=== PATIENT | female | born 1990 | race Caucasian/White ===

== ENCOUNTER 2016-06-20 03:14 | Emergency (ER) | payer MEDICAID, OTHER ==
[~2016-06-20] VITALS: Ht 170.2 cm; Wt 58.9 kg
[~2016-06-20 03:14] MED LIST: AMBI10TA PO; OMEP20CA5 PO; PROM25TA5 PO; Z.0.BCPILL PO
[2016-06-20 03:23] VITALS: BP 119/82; PULSE 76; RESP 20; TEMP 97.8; O2SAT 100
[2016-06-20] MEDS ORDERED: AMBI10TA PO (03:39)
[2016-06-20] MEDS ORDERED: TOPA50TA7 PO (03:39)
[2016-06-20] MEDS ORDERED: SPRI28TA PO (03:39)
[2016-06-20] MEDS ORDERED: SODIUM CHLOR 0.9% 1000 ML INJ 1,000 ML IV ONE (03:43)
[2016-06-20 03:45] VITALS: RESP 18; O2SAT 100
[2016-06-20] MEDS ORDERED: ONDANSETRON HCL 4 MG/2 ML VIAL IVP ONE (03:45)
--- NOTE | 2016-06-20 03:51 | PD ---
HPI Chief Complaint: GI Complaint Time Seen by Provider: 03:43 Travel History International Travel<30 days: No Contact w/Intl Traveler<30days: No Traveled to known affect area: No History of Present Illness HPI 25-year-old female presents to the emergency department by private transportation for multiple episodes of vomiting since 7 PM. Patient states started noticing nausea associated with a mild headache 2-3/10 in intensity frontal in nature. Patient states headache not severe like her migraines. Patient does have history of migraine headaches that are typically 9/10 intensity. This headache is not sudden onset thunderclap or worst ever. Patient does not recall any dietary indiscretion well water ingestion or foreign travel. Patient states symptoms began after exercising but denies any change in her routine prolongation of her routine extra weights to her lip during her routine or any symptoms while doing her exercise regimen. Patient reports that she remains well-hydrated. Last period was approximately 2 weeks ago normal for her denies . No fever no chills no neck pain no neck stiffness no respiratory illness or symptoms. No other persons or family members with similar symptoms. Patient states first episode of of vomiting was self-induced. Patient states multiple episodes of vomiting now are associated with bile. No report of hematemesis or coffee-ground emesis. No abdominal pain and no diarrhea. Patient rates current pain 2/10 intensity. Patient states she's had episodes like this before but infrequently. PFSH Past Medical History Narrative Medical Insomnia, migraines, rest implants, tobacco use Atrial Fibrillation: Yes (STATED BY PT 11/06/15) Diminished Hearing: No Insomnia: Yes Migraines: Yes Tetanus Vaccination: Unknown Influenza Vaccination: No ?: Not LMP: 1 1/2 WEEKS AGO PT STATED : 5 Para: 3 : 2 Past Surgical History Other Surgery: Yes (BREAST IMPLANTS: AGE 22) Social History Alcohol Use: Yes ("OCCASIONALLY") Tobacco Use: Yes (03/20 PPD) Substance Use: No Allergies-Medications (Allergen,Severity, Reaction): Coded Allergies: Penicillin (Verified Allergy, Intermediate, Rash, 06/20/16) Reported Meds & Prescriptions Reported Meds & Active Scripts Active Zofran Odt (Ondansetron Odt) 4 Mg Tab 4 Mg SL Q6HR PRN Reported Topamax (Topiramate) 50 Mg Tab 50 Mg PO BID Sprintec 28 (Norgestimate-Ethinyl Estradiol) 0.25-35 mg-Mcg Tab 1 Tab PO DAILY Ambien (Zolpidem Tartrate) 10 Mg Tab 10 Mg PO HS PRN Review of Systems Except as stated in HPI: all other systems reviewed are Neg General / Constitutional: No: Fever, Chills HENT: Positive: Headaches, No: Congestion, Neck Stiffness, Neck Pain Cardiovascular: No: Chest Pain or Discomfort Respiratory: No: Shortness of Breath Gastrointestinal: Positive: Nausea, Vomiting, No: Diarrhea, Abdominal Pain Genitourinary: No: Dysuria, Flank Pain Musculoskeletal: No: Myalgias, Arthralgias Skin: No Rash Neurologic: Positive: Headache, No: Weakness Psychiatric: No: Anxiety Hematologic/Lymphatic: No: Lymph Node Enlargement Physical Exam Narrative GENERAL: Well-developed well-nourished female in no acute distress no respiratory distress; GCS 15 SKIN: Warm and dry. HEAD: Atraumatic. Normocephalic. EYES: Pupils equal and round. Extraocular muscles intact. No scleral icterus. No injection or drainage. ENT: No nasal bleeding or discharge. Mucous membranes pink and moist. NECK: Trachea midline. No JVD. Supple no meningismus no nuchal rigidity nontender to direct palpation along the cervical spine. CARDIOVASCULAR: Regular rate and rhythm. RESPIRATORY: No accessory muscle use. Clear to auscultation. Breath sounds equal bilaterally. GASTROINTESTINAL: Abdomen soft, non-tender, nondistended. Hepatic and splenic margins not palpable. MUSCULOSKELETAL: Extremities without clubbing, cyanosis, or edema. No obvious deformities. NEUROLOGICAL: Awake and alert. GCS 15. No obvious cranial nerve deficits. Motor grossly within normal limits. Five out of 5 muscle strength in the arms and legs. Normal speech. PSYCHIATRIC: Appropriate mood and affect; insight and judgment normal. Data Data Last Documented VS Vital Signs Date Time Temp Pulse Resp B/P Pulse Ox O2 Delivery O2 Flow Rate FiO2 06/20/16 05:17 70 18 105/61 100 06/20/16 04:40 Room Air 06/20/16 03:23 97.8 Orders Ed Urine Pregnancytest Poc (06/20/16 03:39) Complete Blood Count With Diff (06/20/16 03:43) Basic Metabolic Panel (Bmp) (06/20/16 03:43) Urinalysis - C+S If Indicated (06/20/16 03:43) Lipase (06/20/16 03:43) Iv Access Insert/Monitor (06/20/16 03:43) Ecg Monitoring (06/20/16 03:43) Oximetry (06/20/16 03:43) Ondansetron Inj (Zofran Inj) (06/20/16 03:45) Sodium Chlor 0.9% 1000 Ml Inj (Ns 1000 M (06/20/16 03:43) Ondansetron Inj (Zofran Inj) (06/20/16 05:00) Promethazine Supp (Phenergan Supp) (06/20/16 05:30) Labs Laboratory Tests Test 06/20/16 03:50 White Blood Count 7.7 TH/MM3 Red Blood Count 4.35 MIL/MM3 Hemoglobin 12.4 GM/DL Hematocrit 37.3 % Mean Corpuscular Volume 85.6 FL Mean Corpuscular Hemoglobin 28.6 PG Mean Corpuscular Hemoglobin 33.4 % Concent Red Cell Distribution Width 12.8 % Platelet Count 283 TH/MM3 Mean Platelet Volume 8.4 FL Neutrophils (%) (Auto) 82.6 % Lymphocytes (%) (Auto) 10.8 % Monocytes (%) (Auto) 4.8 % Eosinophils (%) (Auto) 1.3 % Basophils (%) (Auto) 0.5 % Neutrophils # (Auto) 6.4 TH/MM3 Lymphocytes # (Auto) 0.8 TH/MM3 Monocytes # (Auto) 0.4 TH/MM3 Eosinophils # (Auto) 0.1 TH/MM3 Basophils # (Auto) 0.0 TH/MM3 CBC Comment DIFF FINAL Differential Comment Urine Color YELLOW Urine Turbidity CLEAR Urine pH 8.5 Urine Specific [place] 1.031 Urine Protein 30 mg/dL Urine Glucose (UA) NEG mg/dL Urine Ketones 15 mg/dL Urine Occult Blood NEG Urine Nitrite NEG Urine Bilirubin NEG Urine Leukocyte Esterase NEG Urine RBC 0-2 /hpf Urine WBC 0-2 /hpf Urine Squamous Epithelial > 8 /hpf Cells Urine Bacteria NONE /hpf Microscopic Urinalysis Comment CULT NOT INDICATED Sodium Level 140 MEQ/L Potassium Level 3.7 MEQ/L Chloride Level 105 MEQ/L Carbon Dioxide Level 25.1 MEQ/L Anion Gap 10 MEQ/L Blood Urea Nitrogen 15 MG/DL Creatinine 0.84 MG/DL Estimat Glomerular Filtration 81 ML/MIN Rate Random Glucose 97 MG/DL Calcium Level 8.6 MG/DL Lipase 171 U/L [facility] Medical Decision Making Medical Screen Exam Complete: Yes Emergency Medical Condition: Yes Medical Record Reviewed: Yes Differential Diagnosis Vomiting, gastroenteritis, food borne illness, viral syndrome, dehydration, ICH , migraine variant Narrative Course IV access obtained specimens collected and sent for resulting [id number] hCG negative normal saline bolus administered along with Zofran 4 mg IV Laboratory values resulted and found to be grossly within normal limits; point- of-care hCG negative At 4:40 a.m. after 1 L of normal saline and Zofran 4 mg patient is resting comfortably in stable for outpatient management Taking oral hydration with ice chips and the preparing to be discharged, iv access had been removed and patient developed of an episode of vomiting --- therefore Phenergan 25 mg TX administered Diagnosis Primary Impression: Vomiting Qualified Code: R11.2 - Non-intractable vomiting with nausea, unspecified vomiting type Additional Impression: Gastritis Qualified Code: K29.00 - Acute gastritis without hemorrhage, unspecified gastritis type Referrals: Primary Care Physician call for appointment Patient Instructions: General Instructions Departure Forms: Tests/Procedures, Work Release Special Instructions: no work x 1 day Med/Other Pt SpecificInfo: Prescription(s) given Scripts Ondansetron Odt (Zofran Odt)4 Mg Tab4 Mg SL Q6HR PRN (Nausea/Vomiting) #10 TAB Ref 0 Prov:Dea Rabago MD 06/20/16 Disposition: DISCHARGE HOME Condition: Stable Dea Rabago MD Jun 20, 2016 03:50
[2016-06-20 04:00] LABS: AUTOMATED NEUTROPHIL # 6.4 TH/MM3 (1.8-7.7); BASOPHIL % 0.5 % (0.0-2.0); EOSINOPHIL # 0.1 TH/MM3 (0-0.4); EOSINOPHIL % 1.3 % (0.0-4.0); HEMATOCRIT 37.3 % (35.0-46.0); LYMPH % 10.8 % (9.0-44.0); LYMPHOCYTE # 0.8 TH/MM3 (1.0-4.8); MEAN CELL VOLUME 85.6 FL (80.0-100.0); MEAN CORPUSCULAR HEMOGLOBIN 28.6 PG (27.0-34.0); MEAN CORPUSCULAR HGB CONC 33.4 % (32.0-36.0); MONO % 4.8 % (0.0-8.0); NEUT % 82.6 % (16.0-70.0); PLATELET COUNT 283 TH/MM3 (150-450); RED BLOOD COUNT 4.35 MIL/MM3 (4.00-5.30); RED CELL DISTRIBUTION WIDTH 12.8 % (11.6-17.2); WHITE BLOOD COUNT 7.7 TH/MM3 (4.0-11.0)
[2016-06-20 04:01] LABS: HEMO FLAGS DIFF FINAL
[2016-06-20 04:06] LABS: BLOOD, URINE NEG (NEG); GLUCOSE,URINE NEG (NEG); KETONE, URINE 15 mg/dL (NEG); NITRITE,URINE NEG (NEG); PH, URINE 8.5 (5.0-8.5)
[2016-06-20 04:08] LABS: POTASSIUM 3.7 MEQ/L (3.5-5.1)
[2016-06-20 04:11] LABS: BICARBONATE 25.1 MEQ/L (21.0-32.0); RBC, URINE 0-2 /hpf (0-3); SQUAMOUS EPITHELIAL CELL URINE > 8 /hpf (0-5); URINE COLOR YELLOW (YELLW/STRAW); WBC, URINE 0-2 /hpf (0-5)
[2016-06-20 04:12] LABS: COMMENT (UR) CULT NOT INDICATED; COMMENT2 (UR) MUCOUS PRESENT; CULTURE IF INDICATED CULT NOT INDICATED
[2016-06-20] MEDS ORDERED: ZOFR4TAB3 SL (04:39)
[2016-06-20 04:40] VITALS: BP 101/56; PULSE 72; RESP 18; O2SAT 98
[2016-06-20] MEDS ORDERED: ONDANSETRON HCL 4 MG/2 ML VIAL IV PUSH ONE (05:00)
[2016-06-20 05:17] VITALS: BP 105/61
[2016-06-20] MEDS ORDERED: PROMETHAZINE HCL 25 MG SUPP RECTAL ONE (05:30)
== END 2016-06-20 05:57 | disposition home or self-care (01) ==
LOC: PHED 03:14
DX: R11.2 Nausea with vomiting, unspecified (principal); K29.00 Acute gastritis without bleeding; R51 Headache; Z72.0 Tobacco use; Z86.69 Personal history of other diseases of the nervous system and sense organs; Z86.79 Personal history of other diseases of the circulatory system
CPT/HCPCS: 80048; 81001; 83690; 84703; 85025; 96361; 96374; 96376; 99284; J2405; J7030

== ENCOUNTER 2016-09-09 19:58 | Emergency (ER) | payer OTHER ==
[~2016-09-09] VITALS: Ht 170.2 cm; Wt 60.4 kg
[~2016-09-09 19:58] MED LIST changes: -OMEP20CA5 PO; -PROM25TA5 PO; +SPRI28TA PO; +TOPA50TA7 PO; -Z.0.BCPILL PO; +ZOFR4TAB3 SL
[2016-09-09 20:01] VITALS: BP 120/84; PULSE 64; RESP 18; TEMP 98.1; O2SAT 98
--- NOTE | 2016-09-09 20:59 | RADRPT ---
EXAM DATE/TIME: 09/09/2016 20:36 [place] COMPARISON: No previous studies available for comparison. INDICATIONS : Right hand pain. MEDICAL HISTORY : None. SURGICAL HISTORY : None. ENCOUNTER: Initial ACUITY: 1 day PAIN SCORE: 4/10 LOCATION: Right hand. FINDINGS: Three view examination of the right hand demonstrates no soft tissue swelling, dislocation, or fractu re. The carpal bones appear intact. The interphalangeal and metacarpophalangeal joints are intact. Bony mineralization is normal. CONCLUSION: Unremarkable examination of the right hand. Isidoro Fenton MD on September 09, 2016 at 20:56 Board Certified Radiologist. This report was verified electronically.
--- NOTE | 2016-09-09 21:35 | PD ---
HPI Chief Complaint: Laceration/Skin Injury Time Seen by Provider: 20:05 Travel History International Travel<30 days: No Contact w/Intl Traveler<30days: No Traveled to known affect area: No History of Present Illness HPI 26-year-old female presents emergency department for evaluation of laceration right hand. Patient reports she punched a window while demonstrating kickboxing move which caused a laceration over the right fourth MCP. She denies that this was a fight bite injury. Patient has full range of motion of the hand. She reports normal motor and sensation of the digit. Tetanus status up-to-date. [facility] Past Medical History Medical History: Denies Significant Hx Atrial Fibrillation: Yes Diminished Hearing: No Insomnia: Yes Migraines: Yes Tetanus Vaccination: < 5 Years Influenza Vaccination: No ?: Not LMP: 11 days ago : 5 Para: 3 : 2 Past Surgical History Other Surgery: Yes (Breast ) Social History Alcohol Use: Yes (Occ.) Tobacco Use: Yes (Occ.) Substance Use: No Allergies-Medications (Allergen,Severity, Reaction): Coded Allergies: Penicillin (Verified Allergy, Intermediate, Rash, 09/09/16) Reported Meds & Prescriptions Reported Meds & Active Scripts Active Reported Topamax (Topiramate) 50 Mg Tab 50 Mg PO DAILY Sprintec 28 (Norgestimate-Ethinyl Estradiol) 0.25-35 mg-Mcg Tab 1 Tab PO DAILY Review of Systems Except as stated in HPI: all other systems reviewed are Neg Physical Exam Narrative GENERAL: Well-nourished, well-developed patient. SKIN: Focused skin assessment warm/dry. 1.5 cm laceration right hand over MCP joint. No tendon injury visualized. HEAD: Normocephalic. EYES: No scleral icterus. No injection or drainage. NECK: Supple, trachea midline. No JVD or lymphadenopathy. CARDIOVASCULAR: Regular rate and rhythm without murmurs, gallops, or rubs. RESPIRATORY: Breath sounds equal bilaterally. No accessory muscle use. GASTROINTESTINAL: Abdomen soft, non-tender, nondistended. MUSCULOSKELETAL: No cyanosis, or edema. Right hand: 1.5 cm laceration right hand over MCP joint. No tendon injury visualized. Patient has full range of motion against resistance. Normal sensation within the digit. BACK: Nontender without obvious deformity. No CVA tenderness. Data Data Last Documented VS Vital Signs Date Time Temp Pulse Resp B/P Pulse Ox O2 Delivery O2 Flow Rate FiO2 09/09/16 20:01 98.1 64 18 120/84 98 Orders Hand, Complete ([id number]) (09/09/16 ) [facility] Medical Decision Making Medical Screen Exam Complete: Yes Emergency Medical Condition: Yes Differential Diagnosis Hand laceration, contusion, rule out retained foreign body Narrative Course 26-year-old female since emergency department for evaluation of right hand laceration. Patient has a 1.5 cm laceration over the right MCP caused by broken glass. She has normal sensation and full range of motion. X-ray was negative for retained foreign body. Laceration repaired. Wound care and follow -up discussed with patient. She verbalizes understanding. Procedures Procedure Narrative LACERATION LOCATION: [-Right hand ] LENGTH: 1.5 cm NUMBER OF STITCHES/ADELAIDE: [-] REPAIR: The area of the laceration was prepped with Betadine and sterilely draped. The laceration was infiltrated with 1% lidocaine. The wound was copiously irrigated and explored without evidence of foreign body, tendon injury or neurovascular injury. The wound was closed using 4-0 Prolene. This was a [-] layer repair. A sterile dressing was applied. The patient was advised to keep the dressing clean and dry. Patient tolerated the procedure well. Diagnosis Primary Impression: Hand laceration Qualified Code: S61.411A - Laceration of right hand without foreign body, initial encounter Referrals: Primary Care Physician Patient Instructions: General Instructions Departure Forms: Tests/Procedures Additional Instructions: Do not submerge the hand into water. He may begin showering tomorrow. Keep the area clean and dry. Sutures need to be removed in 7-10 days. Disposition: 01 DISCHARGE HOME Condition: Stable TrentonKarolina LUCIA Sep 09, 2016 21:35
== END 2016-09-09 21:35 | disposition home or self-care (01) ==
LOC: PHEFT 19:58
DX: S61.411A Laceration without foreign body of right hand, initial encounter (principal); W22.8XXA Striking against or struck by other objects, initial encounter; Y93.71 Activity, boxing; Z88.0 Allergy status to penicillin; I48.91 Unspecified atrial fibrillation
CPT/HCPCS: 12001; 73130

== ENCOUNTER 2017-08-06 01:29 | Emergency (ER) | payer OTHER ==
[~2017-08-06 01:29] MED LIST changes: -AMBI10TA PO; -ZOFR4TAB3 SL
[2017-08-06 01:33] VITALS: BP 139/98; PULSE 84; RESP 16; TEMP 98
[2017-08-06 01:37] VITALS: O2SAT 99
[2017-08-06] MEDS ORDERED: MORPHINE SULFATE 4 MG/ML INJ IM ONE (02:00)
[2017-08-06] MEDS ORDERED: PROMETHAZINE INJ 25 MG/ML VIAL IM ONE (02:00)
[2017-08-06] MEDS ORDERED: KETOROLAC TROMETHAMINE 60 MG/2 ML (IM) VIAL IM ONE (02:00)
[2017-08-06] MEDS ORDERED: PERI0.126 SWISH-SPIT (02:02)
[2017-08-06] MEDS ORDERED: NORC5TAB PO (02:02)
[2017-08-06] MEDS ORDERED: NAPR500 PO (02:02)
--- NOTE | 2017-08-06 02:02 | PD ---
HPI Chief Complaint: Oral / Dental Pain or Problem Time Seen by Provider: 01:45 Travel History International Travel<30 days: No Contact w/Intl Traveler<30days: No Traveled to known affect area: No History of Present Illness HPI The patient is a 26-year-old female who presents emergency department for pain on the right side of the face. The patient states her pain started earlier tonight, is located in the posterior right upper molar and right lateral jaw. Pain is sharp, intermittent at times, but currently constant and lancinating and severe. The patient denies any ear pain. The patient thought it was a right upper posterior molar and called the on-call dentist for her dentist, however, was unable to get any relief of pain. The patient denies any to sensitivity to the right upper molar, she denies any sensitivity to heat, cold, or air. She denies any pain with mastication of the affected tooth. However, she does complain of pain over the right TMJ area. She denies any posterior headache or neck pain. Symptoms are moderate. PFSH Past Medical History Atrial Fibrillation: Yes Diminished Hearing: No Insomnia: Yes Migraines: Yes Tetanus Vaccination: > 5 Years Influenza Vaccination: No ?: Not LMP: 08/04/17 : 5 Para: 3 : 2 Past Surgical History Other Surgery: Yes (Breast oct.) Social History Alcohol Use: Yes (Occ.) Tobacco Use: Yes (Occ.) Substance Use: No Allergies-Medications (Allergen,Severity, Reaction): Coded Allergies: penicillin G (Unverified Allergy, Intermediate, Rash, 10/29/16) Reported Meds & Prescriptions Reported Meds & Active Scripts Active Peridex Liq (Chlorhexidine Gluconate (Mouth) Liq) 0.12% Soln 15 Ml SWISH-SPIT BID [place] (Hydrocodone-Acetaminophen) 5 Mg-325 Mg Tab 1 Tab PO Q6H PRN Naprosyn (Naproxen) 500 Mg Tab 500 Mg PO BID 10 Days Reported Topamax (Topiramate) 50 Mg Tab 50 Mg PO DAILY Sprintec 28 (Norgestimate-Ethinyl Estradiol) 0.25-35 mg-Mcg Tab 1 Tab PO DAILY Review of Systems Except as stated in HPI: all other systems reviewed are Neg General / Constitutional: No: Fever HENT: Positive: Dental Difficulties, Other (As noted in the history of present illness) Skin: No Rash Physical Exam Narrative GENERAL: Awake, alert, 26-year-old female appears her stated age and appears in moderate discomfort. SKIN: Focused skin assessment warm/dry. HEAD: Atraumatic. Normocephalic. EYES: Pupils equal and round. Mild injection secondary to crying. Multiple tattoos noted. ENT: No nasal bleeding or discharge. Patient has a slightly capitis right upper posterior molar. However, is not sensitive to palpation. There is no palpable abscess. The patient's TMs are translucent and EACs are clear. The patient has significant tenderness over the right TMJ, worse with opening and closing her jaw. NECK: Trachea midline. No JVD. MUSCULOSKELETAL: No obvious deformities. No clubbing. No cyanosis. No edema. NEUROLOGICAL: Awake and alert. No obvious cranial nerve deficits. Motor grossly within normal limits. Normal speech. PSYCHIATRIC: Appropriate mood and affect; insight and judgment normal. Data Data Last Documented VS Vital Signs Date Time Temp Pulse Resp B/P (MAP) Pulse Ox O2 Delivery O2 Flow Rate FiO2 08/06/17 01:37 99 08/06/17 01:33 98.0 84 16 139/98 (112) Orders Orders Morphine Inj (Morphine Inj) (08/06/17 02:00) Promethazine Inj (Phenergan Inj) (08/06/17 02:00) Ketorolac Inj (Toradol Inj) (08/06/17 02:00) [facility] Medical Decision Making Medical Screen Exam Complete: Yes Emergency Medical Condition: Yes Medical Record Reviewed: Yes Differential Diagnosis Differential diagnosis includes pericarditis, odontalgia, otitis media, serous otitis, perforated tympanic membrane, tic douloureux, TMJ pain. Narrative Course The patient was administered morphine 4 mg IM, Toradol 60 mg IM, and Phenergan 25 mg IM. The patient be discharged home on Naprosyn and [place]. She will also be placed on Peridex for the right upper posterior molar, however, I do not believe her pain is coming from the tooth. It appears the patient has tenderness over the right TMJ. Diagnosis Primary Impression: Temporomandibular joint (TMJ) pain Qualified Codes: M26.621 - Arthralgia of right temporomandibular joint Patient Instructions: General Instructions, Narcotic given in the ED Additional Instructions: Medications as directed. Follow-up with your primary physician. Return if symptoms worsen or progress. Apply ice and/or heat of the affected area if this alleviates the symptoms. Med/Other Pt SpecificInfo: Prescription(s) given Scripts Chlorhexidine Gluconate (Mouth) Liq (Peridex Liq) 0.12% Soln 15 ML SWISH-SPIT BID, #473 ML 0 Refills Prov: Alex Pena MD 08/06/17 Hydrocodone-Acetaminophen ([place]) 5 Mg-325 Mg Tab 1 TAB PO Q6H Y for PAIN, #12 TAB 0 Refills Prov: Alex Pena MD 08/06/17 Naproxen (Naprosyn) 500 Mg Tab 500 MG PO BID for 10 Days, #20 TAB 0 Refills Prov: Alex Pena MD 08/06/17 Disposition: 01 DISCHARGE HOME Condition: Stable Alex Pena MD August 06, 2017 02:02
[2017-08-06] MEDS ORDERED: ZOFR4TAB3 SL (02:34)
[2017-08-06 02:40] VITALS: BP 132/75; TEMP 98.2
[2017-08-06] MEDS ORDERED: AMOX500C PO (22:18)
== END 2017-08-06 02:45 | disposition home or self-care (01) ==
LOC: PHED 01:29
DX: M26.621 Arthralgia of right temporomandibular joint (principal); I48.91 Unspecified atrial fibrillation; Z72.0 Tobacco use; Z88.0 Allergy status to penicillin; Z79.899 Other long term (current) drug therapy
CPT/HCPCS: 96372; 99283; J1885; J2270; J2550

== ENCOUNTER 2017-08-06 21:17 | Emergency (ER) | payer OTHER ==
[~2017-08-06] VITALS: Ht 172.7 cm; Wt 63.3 kg
[~2017-08-06 21:17] MED LIST changes: +NAPR500 PO; +NORC5TAB PO; +PERI0.126 SWISH-SPIT; +ZOFR4TAB3 SL
[2017-08-06 21:22] VITALS: BP 160/69; PULSE 59; RESP 20; TEMP 97.5; O2SAT 99
--- NOTE | 2017-08-06 21:36 | PD ---
HPI Chief Complaint: Oral / Dental Pain or Problem Time Seen by Provider: 21:36 Travel History International Travel<30 days: No Contact w/Intl Traveler<30days: No Traveled to known affect area: No History of Present Illness HPI 26-year-old female came to the emergency room with history of right sided facial and jaw pain for past 2 days. Patient says she was in the emergency room last night and was told that she had TMJ and was given naproxen, hydrocodone prescription. It finally got filled today but the pain was excruciating and she decided to come back to the emergency room. Patient says that she has a bad wisdom tooth on her right upper side that she knows needs to be taking care of but has not been to a dentist yet. She thought that was the reason of her pain. Vital signs are otherwise stable. No facial swelling. It hurts to push on that too. No sensitivity to cold or hot food. PFSH Past Medical History Narrative Medical List of her past medical, surgical, social and family history is reviewed from the nursing note. Atrial Fibrillation: Yes Diminished Hearing: No Insomnia: Yes Migraines: Yes ?: Not : 5 Para: 3 : 2 Past Surgical History Other Surgery: Yes (Breast aug.) Social History Alcohol Use: Yes (Occ.) Tobacco Use: Yes (Occ.) Substance Use: No Allergies-Medications (Allergen,Severity, Reaction): Coded Allergies: penicillin G (Verified Allergy, Intermediate, Rash, 08/06/17) Comments List of her allergies reviewed from the nursing note Reported Meds & Prescriptions Reported Meds & Active Scripts Active Amoxicillin 500 Mg Cap 500 Mg PO BID 10 Days Zofran Odt (Ondansetron Odt) 4 Mg Tab 4 Mg SL Q6HR PRN Peridex Liq (Chlorhexidine Gluconate (Mouth) Liq) 0.12% Soln 15 Ml SWISH-SPIT BID [place] (Hydrocodone-Acetaminophen) 5 Mg-325 Mg Tab 1 Tab PO Q6H PRN Naprosyn (Naproxen) 500 Mg Tab 500 Mg PO BID 10 Days Reported Topamax (Topiramate) 50 Mg Tab 50 Mg PO DAILY Sprintec 28 (Norgestimate-Ethinyl Estradiol) 0.25-35 mg-Mcg Tab 1 Tab PO DAILY Narrative Medication List of her home medications reviewed from the nursing note Review of Systems Except as stated in HPI: all other systems reviewed are Neg HENT: Positive: Dental Difficulties Physical Exam Narrative GENERAL: Awake, alert, moderate distress SKIN: Focused skin assessment warm/dry. HEAD: Atraumatic. Normocephalic. EYES: Pupils equal and round. No scleral icterus. No injection or drainage. ENT: No nasal bleeding or discharge. Mucous membranes pink and moist. Upper third molar has significant caries and eroded to the gum. It is tender to pressure. No gingival swelling or fluctuance. NECK: Trachea midline. No JVD. CARDIOVASCULAR: Regular rate and rhythm. No murmur appreciated. RESPIRATORY: No accessory muscle use. Clear to auscultation. Breath sounds equal bilaterally. GASTROINTESTINAL: Abdomen soft, non-tender, nondistended. Hepatic and splenic margins not palpable. MUSCULOSKELETAL: No obvious deformities. No clubbing. No cyanosis. No edema. NEUROLOGICAL: Awake and alert. No obvious cranial nerve deficits. Motor grossly within normal limits. Normal speech. PSYCHIATRIC: Appropriate mood and affect; insight and judgment normal. Data Data Last Documented VS Vital Signs Date Time Temp Pulse Resp B/P (MAP) Pulse Ox O2 Delivery O2 Flow Rate FiO2 08/06/17 21:22 97.5 59 20 160/69 (99) 99 Orders Orders Lidocai-Epi 1%-1:100,000 Inj (Xylocaine- (08/06/17 22:00) Bupivacaine Pf 0.5% Inj (Marcaine Pf 0.5 (08/06/17 22:00) Acetamin-Hydrocod 325-5 Mg ([place] 5-325 (08/06/17 22:15) Clindamycin (Cleocin) (08/06/17 22:15) MDM Medical Decision Making Medical Screen Exam Complete: Yes Emergency Medical Condition: Yes Medical Record Reviewed: Yes Differential Diagnosis Caries tooth, dental infection Narrative Course 10:14 PM I offered patient p.o. pain medication and dental block and she chose to get the dental block. I just finished doing the procedure. Please refer to my procedure note. I have also given her p.o. hydrocodone and clindamycin. Her allergies says penicillin G although patient says she has taken amoxicillin in the past. I will go and reassess her and make sure that her pain is gone. After that she will be discharged home. She has prescription medication for pain at home to continue to take. I recommended her to see a dentist soon. Procedures Procedure Narrative Posterior superior alveolar block: 4 mL of 1-1 mix of 0.5% bupivacaine with 1% lidocaine and epi was injected into the right upper second molar adjacent gingival buccal groove going into the posterior superior alveolar nerve to achieve the block. The entire quantity was infiltrated. Patient tolerated the procedure well. EKG Prior to Arrival: No Diagnosis Primary Impression: Caries Additional Impression: Pain, dental Additional Instructions: Please see a dentist to take care of the wisdom tooth which probably will need to be taken out. Take the medication as per the prescription direction. Take the pain medication that was given to you yesterday for pain relief as well. Eat soft diet for the next 12 hours. Med/Other Pt SpecificInfo: Prescription(s) given Scripts Amoxicillin (Amoxicillin) 500 Mg Cap 500 MG PO BID for Infection for 10 Days, #20 CAP 0 Refills Prov: Watson Perez MD 08/06/17 Disposition: 01 DISCHARGE HOME Condition: Stable Watson Perez MD August 06, 2017 21:36
[2017-08-06] MEDS ORDERED: LIDOCAINE 1%/EPINEPHrine 1:100,000 SOLN 20 ML VIAL INFIL ONE (22:00)
[2017-08-06] MEDS ORDERED: BUPIVACAINE HCL PF 0.5% 30 ML VIAL INFIL ONE (22:00)
[2017-08-06] MEDS ORDERED: ACETAMINOPHEN/HYDROcodone 325 MG/5 MG TAB PO ONE (22:15)
[2017-08-06] MEDS ORDERED: CLINDAMYCIN 150 MG CAP PO ONE (22:15)
[2017-08-06] MEDS ORDERED: AMOX500C PO (22:18)
== END 2017-08-06 22:27 | disposition home or self-care (01) ==
LOC: PHEFT 21:17
DX: K02.9 Dental caries, unspecified (principal); I48.91 Unspecified atrial fibrillation; Z72.0 Tobacco use; Z88.0 Allergy status to penicillin; Z79.899 Other long term (current) drug therapy
CPT/HCPCS: 64400